=== PATIENT | male | born 1995 | race American Indian/Alaskan Native ===

== ENCOUNTER 2021-02-01 | Emergency (ER) | payer SELFPAY ==
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
[2021-02-01 01:49] VITALS: BP 129/77
== END 2021-02-01 01:30 | disposition home or self-care (01) ==
LOC: EEVIPCON → ED
DX: T18.5XXA Foreign body in anus and rectum, initial encounter (principal); Z98.890 Other specified postprocedural states; X58.XXXA Exposure to other specified factors, initial encounter; Y93.89 Activity, other specified; Y92.89 Other specified places as the place of occurrence of the external cause; Y99.8 Other external cause status
CPT/HCPCS: 72170; 99283